=== PATIENT | female | born 1990 | race American Indian/Alaskan Native ===

== ENCOUNTER 2017-07-30 15:13 | Emergency (ER) | payer OTHER ==
[2017-07-30 15:13] VITALS: BMI 48.6
[2017-07-30] MEDS ORDERED: Naproxen 550 mg Tab PO STA (16:46)
--- NOTE | 2017-07-30 16:54 | C.PDOC ---
History Of Present Illness 07/30/2017 Amie Ang is a 27 y/o female who presents to the ED complaining of lower back pain for the past few weeks. Patient notes having a PEN TESTER shunt in lower back and believes it might be causing her pain. She reports working at [employer] and her work requires a lot of heavy lifting. The pain is non-radiating but becomes worse with movement and bending down. No other complaints were made. Time Seen by Provider: 07/30/17 15:52 Chief Complaint (Nursing): Back Pain History Per: Patient History/Exam Limitations: no limitations Onset/Duration Of Symptoms: Other (few weeks) Current Symptoms Are (Timing): Worse Previous Symptoms: Back Pain (lower back ) Associated Symptoms: None. denies: Incontinence, New Weakness, New Numbness Exacerbating Factor(s): Movement, Other (bending) Recent travel outside of the [place]: No Past Medical History Reviewed: Historical Data, Nursing Documentation, Vital Signs Vital Signs: Last Vital Signs Temp 98 F 07/30/17 17:52 Pulse 70 07/30/17 17:52 Resp 20 07/30/17 17:52 BP 111/72 07/30/17 17:52 Pulse Ox 96 07/30/17 17:59 - Medical History PMH: Anemia Denies: Chronic Kidney Disease - [facility] Procedures ESOPHAGOGASTRODUODENOSCOPY [EGD] W/CLOSED BIOPSY (07/23/15) MANUAL ASSIST DELIV NEC (10/03/13) Family History: States: Unknown Family Hx - Social History Hx Tobacco Use: No Hx Alcohol Use: No Hx Substance Use: No - Immunization History Hx Tetanus Toxoid Vaccination: No Hx Influenza Vaccination: No Hx Pneumococcal Vaccination: No Review Of Systems Constitutional: Negative for: Fever Cardiovascular: Negative for: Chest Pain Respiratory: Negative for: Shortness of Breath Genitourinary: Negative for: Dysuria Musculoskeletal: Positive for: Back Pain (lower back pain) Physical Exam - Physical Exam Appears: Well, Non-toxic, No Acute Distress Skin: Normal Color, Warm, Dry, Other (scar in lower back where PEN TESTER shunt is) Head: Atraumatic, Normacephalic Eye(s): bilateral: Normal Inspection, PERRL, EOMI Oral Mucosa: Moist Neck: Normal ROM, Supple Cardiovascular: Rhythm Regular, No Friction Rub, No Murmur Respiratory: Normal Breath Sounds, No Rales, No Rhonchi, No Wheezing Gastrointestinal/Abdominal: Normal Exam, Soft, No Tenderness Back: Normal Inspection, No CVA Tenderness, No Paraspinal Tenderness, Other Extremity: Normal ROM Neurological/Psych: Oriented x3, Normal Speech, Normal Motor, Normal Sensation Gait: Steady ED Course And Treatment O2 Sat by Pulse Oximetry: 96 (room air) Pulse Ox Interpretation: Normal Medical Decision Making Medical Decision Makin07/30/2017 Plan: -- Lumbar spine x-ray -- Anaprox and Flexeril -- Reassess and disposition Progress Notes: On re-exam, the patient reports the improvement of symptoms. Lungs are CTA, Lungs are CTA, Abdomen is soft, non-tender and patient is tolerating PO well. Patient is ambulatory in the ED with the steady gait. Follow up with the medical doctor within 1-2 days. Return if worsened. Disposition - Disposition Referrals: Waldemar Lee MD [Non-Staff] - Disposition: HOME/ ROUTINE Disposition Time: 17:55 Condition: GOOD Additional Instructions: Follow up with the medical doctor within 1-2 days. Return if worsened. Prescriptions: Cyclobenzaprine [Flexeril] 5 mg PO TID #21 tab Ibuprofen [Motrin Tab] 800 mg PO TID #20 tab Instructions: Back Pain (GEN), Back Exercises (ED) Forms: [facility] (Ukrainian), Work Excuse - Clinical Impression Clinical Impression: Low back strain - Scribe Statement The provider has reviewed the documentation as recorded by the Scribe 07/30/2017 Scribe Attestation: Makenna Webster MD Scribe Attestation: All medical record entries made by the Scribe were at my direction and personally dictated by me. I have reviewed the chart and agree that the record accurately reflects my personal performance of the history, physical exam, medical decision making, and the department course for this patient. I have also personally directed, reviewed, and agree with the discharge instructions and disposition.
[2017-07-30] MEDS ORDERED: Naproxen 550 mg Tab PO ONE (17:12)
[2017-07-30 17:54] VITALS: BP 111/72; PULSE 70; RESP 20; TEMP 98
--- NOTE | 2017-07-30 17:57 | RAD ---
PROCEDURE: Radiographs of the Lumbar Spine. HISTORY: Low back pain, has vp design shunt in lower back COMPARISON: No prior. FINDINGS: BONES: Normal alignment. No listhesis. No fracture. DISC SPACES: Unremarkable. OTHER FINDINGS: None. IMPRESSION: Unremarkable radiographs of the lumbar spine.
[2017-07-30 17:58] VITALS: O2SAT 96
== END 2017-07-30 18:07 | disposition home or self-care (01) ==
LOC: C.ER 15:13
DX: S39.012A Strain of muscle, fascia and tendon of lower back, initial encounter (principal); X50.0XXA Overexertion from strenuous movement or load, initial encounter; Y99.0 Civilian activity done for income or pay

== ENCOUNTER 2017-10-09 08:42 | Emergency (ER) | payer OTHER ==
[2017-10-09 08:43] VITALS: BMI 48.6
[2017-10-09 08:47] VITALS: BP 121/86; PULSE 77; RESP 17; TEMP 97.8; O2SAT 100
--- NOTE | 2017-10-09 09:19 | RAD ---
PROCEDURE: Left Hand Radiographs. HISTORY: PAIN/SWELLING COMPARISON: None. FINDINGS: BONES: Normal. No fracture. JOINTS: Normal. No osteoarthritic changes. SOFT TISSUES: Normal. OTHER FINDINGS: None. IMPRESSION: Normal left hand radiographs.
--- NOTE | 2017-10-09 09:27 | C.PDOC ---
History Of Present Illness 27 year female presents to the ED for evaluation of new onset left wrist pain which began last night. Patient denies trauma and states symptoms are worse with movement. Patient denies repetitive movement activities. Patient is right handed. Denies any other associated symptoms. NEW ONSET L WRIST PAIN SINCE LAST NIGHT. NO TRAUMA. WORSE W MOVEMENT. DENIES REPETITIVE MOVEMENT ACTIVITIES. R HANDED. NO OTHER ASSOC SX EXAM NAD EXT R WRIST/HAND NEG. L HAND/WRIST +REPRODUC PAIN W WRIST ROM LIMITED FULL FLEX/ EXT. MIN SWELL OVER DISTAL RADIAL ASPECT NO FOCAL TEND SKIN INTACT NO ERYTHEMA NO LESIONS NEURO INTACT Time Seen by Provider: 10/09/17 09:16 Chief Complaint (Nursing): Upper Extremity Problem/Injury History Per: Patient History/Exam Limitations: no limitations Onset/Duration Of Symptoms: Hrs, Other (new onset ) Current Symptoms Are (Timing): Still Present Quality: "Pain" Exacerbating Factor(s): Movement Additional History Per: Patient Past Medical History Reviewed: Historical Data, Nursing Documentation, Vital Signs Vital Signs: Last Vital Signs Temp 97.8 F 10/09/17 08:44 Pulse 77 10/09/17 08:44 Resp 17 10/09/17 08:44 BP 121/86 10/09/17 08:44 Pulse Ox 100 10/09/17 09:38 - Medical History PMH: Anemia Denies: Chronic Kidney Disease Surgical History: No Surg Hx - [facility] Procedures ESOPHAGOGASTRODUODENOSCOPY [EGD] W/CLOSED BIOPSY (07/23/15) MANUAL ASSIST DELIV NEC (10/03/13) Family History: States: Unknown Family Hx - Social History Hx Tobacco Use: No Hx Alcohol Use: Yes Hx Substance Use: No - Immunization History Hx Tetanus Toxoid Vaccination: No Hx Influenza Vaccination: No Hx Pneumococcal Vaccination: No Review Of Systems Musculoskeletal: Positive for: Other (left wrist pain ) Neurological: Negative for: Weakness, Numbness Physical Exam - Physical Exam Appears: Non-toxic, No Acute Distress Skin: Normal Color, Warm, Dry, No Other (erythema or lesions ) Extremity: Normal ROM (right wrist and hand ), No Tenderness (no focal tenderness), Capillary Refill (less than 2 seconds ), No Deformity, Swelling ( minimal, over disal radial aspect of left wrist), Other (reproducible pain with left wrist ROM; limited full flexion and extension ) Neurological/Psych: Oriented x3, Normal Speech, Normal Cognition, Normal Sensation Gait: Steady ED Course And Treatment O2 Sat by Pulse Oximetry: 100 (on RA) Pulse Ox Interpretation: Normal - Other Rad L HAND X-Ray: Interpreted by Me (NEG) Progress Note: Left hand XR ordered and reviewed. Lidoderm TD, Motrin PO, and Tylenol PO administered. Reevaluation Time: 09:37 Reassessment Condition: Improved (PT NOW STATES UNABLE TO TAKE NSAIDS DUE TO HO BYPASS) Disposition Counseled Patient/Family Regarding: Studies Performed, Diagnosis, Need For Followup, Rx Given - Disposition Referrals: Skinny Vines MD [Staff Provider] - [facility] [Outside] [facility] [Outside] Disposition: HOME/ ROUTINE Disposition Time: 09:26 Condition: IMPROVED Additional Instructions: REMOVE PATCH 12 HOURS AFTER INITIAL APPLICATION. Prescriptions: Acetaminophen [Tylenol Extra Strength] 2 tab PO Q6 #30 tablet Lidocaine 5% [Lidoderm] 1 ea TD PRN PRN #10 patch PRN Reason: Pain, Moderate (4-7) Instructions: Wrist Sprain (ED) Forms: [employer] (Hungarian), Work Excuse - Clinical Impression Clinical Impression: Wrist sprain - Scribe Statement The provider has reviewed the documentation as recorded by the Scribe (Brigitte Andrews) Provider Attestation: All medical record entries made by the Scribe were at my direction and personally dictated by me. I have reviewed the chart and agree that the record accurately reflects my personal performance of the history, physical exam, medical decision making, and the department course for this patient. I have also personally directed, reviewed, and agree with the discharge instructions and disposition. Orthopedic Care Application Of:: Volar Splint
[2017-10-09] MEDS ORDERED: Lidocaine 5% Patch TD STA (09:38)
[2017-10-09] MEDS ORDERED: Lidocaine 5% Patch TD ONE (09:41)
== END 2017-10-09 09:49 | disposition home or self-care (01) ==
LOC: C.ER 08:42
DX: S63.502A Unspecified sprain of left wrist, initial encounter (principal); X58.XXXA Exposure to other specified factors, initial encounter

== ENCOUNTER 2018-01-28 20:06 | Emergency (ER) | payer OTHER ==
[2018-01-28 20:06] VITALS: BMI 48.6
[2018-01-28 20:16] VITALS: RESP 18; TEMP 98.6; O2SAT 99
[2018-01-28] MEDS ORDERED: Sodium Chloride 0.9% 1,000 ML IV ONE (20:49)
--- NOTE | 2018-01-28 20:56 | C.PDOC ---
History Of Present Illness 27-year-old female s/p gastric bypass and cholecystectomy, presents to the ER complaining of 1 week of epigastric abdominal pain and nausea. No fever, chills , vomiting, diarrhea, or other complaints at this time. LMP was 01/04/18. Time Seen by Provider: 01/28/18 20:41 Chief Complaint (Nursing): Abdominal Pain History Per: Patient History/Exam Limitations: no limitations Onset/Duration Of Symptoms: Days (x 1 week) Current Symptoms Are (Timing): Still Present Location Of Pain/Discomfort: Epigastric Associated Symptoms: Nausea Past Medical History Reviewed: Historical Data, Nursing Documentation, Vital Signs Vital Signs: Last Vital Signs Temp 98.6 F 01/28/18 20:13 Pulse 81 01/28/18 20:13 Resp 18 01/28/18 20:13 BP 116/78 01/28/18 20:13 Pulse Ox 99 01/28/18 20:59 - Medical History PMH: Anemia Denies: Chronic Kidney Disease Surgical History: Cholecystectomy Other Surgeries: Gastric bypass - [facility] Procedures ESOPHAGOGASTRODUODENOSCOPY [EGD] W/CLOSED BIOPSY (07/23/15) MANUAL ASSIST DELIV NEC (10/03/13) Family History: States: Unknown Family Hx - Social History Hx Tobacco Use: No Hx Alcohol Use: Yes Hx Substance Use: No - Immunization History Hx Tetanus Toxoid Vaccination: No Hx Influenza Vaccination: No Hx Pneumococcal Vaccination: No Review Of Systems Except As Marked, All Systems Reviewed And Found Negative. Constitutional: Negative for: Fever, Chills Gastrointestinal: Positive for: Nausea, Abdominal Pain. Negative for: Vomiting , Diarrhea Physical Exam - Physical Exam Appears: Non-toxic, No Acute Distress Skin: Normal Color, Warm, Dry Head: Atraumatic, Normacephalic Eye(s): bilateral: Normal Inspection, PERRL, EOMI Nose: Normal Oral Mucosa: Moist Neck: Normal ROM, Supple Chest: Symmetrical Cardiovascular: Rhythm Regular, No Murmur Respiratory: Normal Breath Sounds, No Accessory Muscle Use Gastrointestinal/Abdominal: Soft, Tenderness (Mild epigastric tenderness), No Guarding, No Rebound Extremity: Bilateral: Atraumatic, Normal Color And Temperature, Normal ROM Neurological/Psych: Oriented x3, Normal Speech ED Course And Treatment - Laboratory Results Result Diagrams: 01/28/18 20:58 01/28/18 20:58 O2 Sat by Pulse Oximetry: 99 (RA) Pulse Ox Interpretation: Normal Medical Decision Making Medical Decision Making: suspect gastrits pud r/o pancreatitis h/o of cholecystetomy- labs pending Time: 20:49 Initial Plan: * Bilirubin * CMP * Lipase * CBC * PTT * Prothrombin time * Urinalysis * HCG, qualitative urine * IV fluids * Zofran 4 mg IVP * Protonix 40 mg IVP * Reevaluation 920: pt reassesed pain improving. pt is offered additional ct imaging, however she declines at this time, she states she will return to er with worsening symptoms or concerns. Disposition - Disposition Referrals: Demetrius Newby MD [Primary Care Provider] - Ayden Marlow MD [Staff Provider] - Disposition: HOME/ ROUTINE Disposition Time: 21:23 Condition: STABLE Additional Instructions: please follow up with your doctor/specialist. return to er with worsening symptoms or concerns. Prescriptions: Famotidine [Pepcid] 20 mg PO DAILY #20 tab Forms: [employer] (Japanese) - Clinical Impression Clinical Impression: Abdominal pain - Scribe Statement The provider has reviewed the documentation as recorded by the Scribe (Shanae Johnson) Provider Attestation: All medical record entries made by the Scribe were at my direction and personally dictated by me. I have reviewed the chart and agree that the record accurately reflects my personal performance of the history, physical exam, medical decision making, and the department course for this patient. I have also personally directed, reviewed, and agree with the discharge instructions and disposition.
[2018-01-28] MEDS ORDERED: Sodium Chloride 0.9% 1,000 ML ONE (21:01)
[2018-01-28 21:03] LABS: BASO # 0.1 K/uL (0.0-0.2); BASO % 0.8 % (0.0-2.0); EOS # 0.1 K/uL (0.0-0.7); HEMOGLOBIN 11.2 g/dL (11.0-16.0); LYMPH # 2.5 K/uL (1.0-4.3); LYMPH % 33.1 % (20.0-40.0); MEAN CELL VOLUME 70.9 fL (81.0-99.0); MEAN CORPUSCULAR HEMOGLOBIN 23.3 pg (27.0-31.0); MEAN CORPUSCULAR HGB CONC 32.9 g/dL (33.0-37.0); MEAN PLATELET VOLUME 10.2 fL (7.2-11.7); MONO # 0.5 K/uL (0.0-0.8); MONO % 6.4 % (0.0-10.0); NEUT # 4.4 K/uL (1.8-7.0); NEUT % 58.7 % (50.0-75.0); NRBC % 0.1 % (0.0-2.0); RBC 4.79 Mil/uL (3.80-5.20); RED CELL DISTRIBUTION WIDTH 15.7 % (11.5-14.5); WHITE BLOOD COUNT 7.4 K/uL (4.8-10.8)
[2018-01-28 21:10] LABS: HCG,QUALITATIVE URINE NEGATIVE (NEGATIVE)
[2018-01-28 21:12] LABS: INR 1.1; PROTHROMBIN TIME 12.6 SECONDS (9.7-12.2); SQUAMOUS EPITHIAL < 1 /hpf (0-5); URINE BACTERIA RARE (<OCC); URINE BILIRUBIN NEGATIVE (NEGATIVE); URINE BLOOD NEGATIVE (NEGATIVE); URINE CLARITY Clear (Clear); URINE COLOR Yellow (YELLOW); URINE GLUCOSE (UA) NORMAL (Normal); URINE LEUKOCYTE ESTERASE NEG Leu/uL (Negative); URINE PROTEIN NEGATIVE (NEGATIVE)
[2018-01-28 21:18] LABS: ALBUMIN 4.2 g/dL (3.5-5.0); ALT/SGPT 25 U/L (9-52); AST/SGOT 35 U/L (14-36); BILIRUBIN,DIRECT 0.4 mg/dL (0.0-0.4); BLOOD UREA NITROGEN 12 mg/dL (7-17); CALCIUM 8.6 mg/dl (8.6-10.4); GFR AFRICAN-AMERICAN > 60; GFR NON-AFRICAN AMERICAN > 60; LIPASE 166 U/L (23-300)
[2018-01-28 21:37] VITALS: BP 113/67; PULSE 79
== END 2018-01-28 21:47 | disposition home or self-care (01) ==
LOC: C.ER 20:06 → SUPCPDRO 20:06 → C.ER 21:47
DX: R10.13 Epigastric pain (principal)
CPT/HCPCS: 80053; 81001; 82248; 83690; 84703; 85025; 85610; 85730; 96361; 96374; 96375; 99283; C9113; J2405; J7040

== ENCOUNTER 2018-08-05 18:57 | Emergency (ER) | payer OTHER ==
[2018-08-05 18:57] VITALS: BMI 48.6
[2018-08-05] MEDS ORDERED: Sodium Chloride 0.9% 1,000 ML IV ONE (19:18)
--- NOTE | 2018-08-05 19:18 | C.PDOC ---
History Of Present Illness 28 year old female presents to the ED c/o right flank pain for the couple weeks. Patient states she had abdominal discomfort since she had abdominal plasty done in the [place]. Patient is tolerating PO. Patient denies fever, chilss, dysuria, hematuria, vomiting, diarrhea. Time Seen by Provider: 08/05/18 19:17 Chief Complaint (Nursing): Abdominal Pain History Per: Patient History/Exam Limitations: no limitations Onset/Duration Of Symptoms: Days Current Symptoms Are (Timing): Still Present Context: Other Severity: Moderate Pain Scale Rating Of: 4 Location Of Pain/Discomfort: RUQ, RLQ Radiation Of Pain To:: Flank Quality Of Discomfort: "Pain" Associated Symptoms: denies: Nausea, Vomiting, Diarrhea, Loss Of Appetite, Urinary Symptoms Exacerbating Factors: None Alleviating Factors: None Last Bowel Movement: Today Recent travel outside of the [place]: No Additional History Per: Patient Abnormal Vaginal Bleeding: No Past Medical History Reviewed: Historical Data, Nursing Documentation, Vital Signs Vital Signs: Last Vital Signs Temp 98.1 F 08/05/18 22:13 Pulse 92 H 08/05/18 22:13 Resp 14 08/05/18 22:13 BP 106/69 08/05/18 22:13 Pulse Ox 100 08/05/18 22:13 - Medical History PMH: Anemia Denies: Chronic Kidney Disease Surgical History: Cholecystectomy - [facility] Procedures ESOPHAGOGASTRODUODENOSCOPY [EGD] W/CLOSED BIOPSY (07/23/15) MANUAL ASSIST DELIV NEC (10/03/13) Family History: States: Unknown Family Hx - Social History Hx Tobacco Use: No Hx Alcohol Use: Yes Hx Substance Use: No - Immunization History Hx Tetanus Toxoid Vaccination: No Hx Influenza Vaccination: No Hx Pneumococcal Vaccination: No Review Of Systems Constitutional: Negative for: Fever, Chills Cardiovascular: Negative for: Chest Pain Respiratory: Negative for: Shortness of Breath Gastrointestinal: Positive for: Abdominal Pain. Negative for: Nausea, Vomiting , Diarrhea Genitourinary: Negative for: Dysuria, Hematuria, Vaginal Discharge, Vaginal Bleeding Musculoskeletal: Positive for: Back Pain Skin: Negative for: Rash Physical Exam - Physical Exam Appears: Non-toxic, No Acute Distress Skin: Warm, Dry Head: Normacephalic Eye(s): bilateral: Normal Inspection Neck: Supple Chest: Symmetrical Cardiovascular: Rhythm Regular Respiratory: No Rales, No Rhonchi, No Wheezing Gastrointestinal/Abdominal: Soft, Tenderness (mild RLQ, right flank), No Guarding, No Rebound Back: CVA Tenderness (mild right ) Extremity: No Tenderness, No Swelling Extremity: Bilateral: Atraumatic, Normal Color And Temperature, Normal ROM Neurological/Psych: Oriented x3, Normal Speech Gait: Steady ED Course And Treatment - Laboratory Results Result Diagrams: 08/05/18 19:39 08/05/18 19:39 O2 Sat by Pulse Oximetry: 100 (ON RA) Pulse Ox Interpretation: Normal Progress Note: Plan: - Labs. - IV fluids. - Zofran 4 mg IVP. - UA Reevaluation Time: 22:50 Reassessment Condition: Improved Disposition Counseled Patient/Family Regarding: Studies Performed, Diagnosis, Need For Followup, Rx Given - Disposition Referrals: Demetrius Newby MD [Staff Provider] - Disposition: HOME/ ROUTINE Disposition Time: 19:18 Condition: FAIR Additional Instructions: Please return if symptoms recur Prescriptions: Metronidazole [Flagyl] 500 mg PO TID #21 tablet Instructions: Acute Abdomen (Belly Pain), Adult (DC) Forms: [employer] (Albanian) - Clinical Impression Clinical Impression: Abdominal pain, Enteritis - Scribe Statement The provider has reviewed the documentation as recorded by the Scribe Martin Chris All medical record entries made by the Scribe were at my direction and personally dictated by me. I have reviewed the chart and agree that the record accurately reflects my personal performance of the history, physical exam, medical decision making, and the department course for this patient. I have also personally directed, reviewed, and agree with the discharge instructions and disposition.
[2018-08-05] MEDS ORDERED: Sodium Chloride 0.9% 1,000 ML ONE (19:43)
[2018-08-05 19:45] LABS: EOS # 0.1 K/uL (0.0-0.7); EOS % 1.5 % (0.0-4.0); LYMPH # 1.7 K/uL (1.0-4.3); LYMPH % 35.4 % (20.0-40.0); MEAN CELL VOLUME 71.6 fL (81.0-99.0); MEAN CORPUSCULAR HEMOGLOBIN 22.8 pg (27.0-31.0); MEAN CORPUSCULAR HGB CONC 31.8 g/dL (33.0-37.0); MEAN PLATELET VOLUME 9.6 fL (7.2-11.7); MONO # 0.4 K/uL (0.0-0.8); MONO % 7.9 % (0.0-10.0); NEUT # 2.7 K/uL (1.8-7.0); NEUT % 54.2 % (50.0-75.0); NRBC % 0.1 % (0.0-2.0); RBC 4.81 Mil/uL (3.80-5.20); RED CELL DISTRIBUTION WIDTH 17.6 % (11.5-14.5); WHITE BLOOD COUNT 4.9 K/uL (4.8-10.8)
[2018-08-05 19:51] LABS: INR 1.2
[2018-08-05 20:00] LABS: BLOOD UREA NITROGEN 10 mg/dL (7-17); CALCIUM 8.9 mg/dl (8.6-10.4); GFR NON-AFRICAN AMERICAN > 60; LIPASE 150 U/L (23-300)
[2018-08-05 20:01] LABS: SQUAMOUS EPITHIAL 1 /hpf (0-5); URINE BACTERIA RARE (<OCC); URINE BILIRUBIN NEGATIVE (NEGATIVE); URINE BLOOD 2+ (NEGATIVE); URINE CLARITY Clear (Clear); URINE COLOR Yellow (YELLOW); URINE GLUCOSE (UA) NORMAL (Normal); URINE LEUKOCYTE ESTERASE NEG Leu/uL (Negative); URINE PROTEIN NEGATIVE (NEGATIVE)
[2018-08-05 20:03] LABS: ALBUMIN 4.2 g/dL (3.5-5.0); ALT/SGPT 19 U/L (9-52); AST/SGOT 43 U/L (14-36)
[2018-08-05 20:04] LABS: HCG,QUALITATIVE URINE NEGATIVE (NEGATIVE)
[2018-08-05] MEDS ORDERED: Iodixanol 320 MG/ML 100 ML BOTTLE IV ONE (20:38)
[2018-08-05] MEDS ORDERED: DiphenhydrAMINE 50 mg/ml Inj IVP STA (21:06)
[2018-08-05] MEDS ORDERED: DiphenhydrAMINE 50 mg/ml Inj ONE (21:24)
[2018-08-05 22:14] VITALS: BP 106/69; PULSE 92; RESP 14; TEMP 98.1; O2SAT 100
--- NOTE | 2018-08-06 08:58 | CT ---
Date of service: 08/05/2018 PROCEDURE: CT Abdomen and Pelvis with intravenous contrast HISTORY: Right lower quadrant abdominal pain. COMPARISON: 12/22/2017 TECHNIQUE: Multiple contiguous axial images were performed through the abdomen and pelvis with the use of intravenous contrast. Subsequently, sagittal and coronal reformatted images were obtained. Radiation dose: Total exam DLP = 587 mGy-cm. This CT exam was performed using one or more of the following dose reduction techniques: Automated exposure control, adjustment of the mA and/or kV according to patient size, and/or use of iterative reconstruction technique. FINDINGS: LOWER THORAX: Unremarkable. LIVER: Unremarkable. No gross lesion or ductal dilatation. GALLBLADDER AND BILE DUCTS: Prior cholecystectomy. PANCREAS: Unremarkable. No gross lesion or ductal dilatation. SPLEEN: Unremarkable. ADRENALS: Unremarkable. No mass. KIDNEYS AND URETERS: Unremarkable. No hydronephrosis. No solid mass. VASCULATURE: Unremarkable. No aortic aneurysm. BOWEL: Gastric stapling and bypass. The distal small bowel and terminal ileum are thick walled raising suspicion for an infectious/inflammatory process. Inflammatory bowel disease is not excluded. Few scattered areas of thickening and/or underdistention of the proximal transverse colon and sigmoid colon. APPENDIX: Unremarkable. Normal appendix. PERITONEUM: Unremarkable. No free fluid. No free air. LYMPH NODES: Mildly prominent bilateral inguinal lymph nodes. BLADDER: Unremarkable. REPRODUCTIVE: 2.7 centimeter right ovarian cyst. BONES: No acute fracture. OTHER FINDINGS: None. IMPRESSION: No evidence of acute appendicitis. Thick walled distal small bowel and terminal ileum. Few scattered areas of thickening and/or underdistention of the proximal transverse colon and sigmoid colon. Possible infectious/ inflammatory process. Inflammatory bowel is not excluded. Clinical correlation. 2.7 centimeter right ovarian cyst. Additional findings as above. These findings were preliminarily reported at 10:46 p.m. on 08/05/[address] Maura Scales from [employer].
== END 2018-08-05 23:12 | disposition home or self-care (01) ==
LOC: C.ER 18:57
DX: K52.9 Noninfective gastroenteritis and colitis, unspecified (principal); R10.31 Right lower quadrant pain
CPT/HCPCS: 74177; 80053; 81001; 83690; 84703; 85025; 85610; 85730; 96361; 96374; 96375; 99285; J1200; J1885; J2405; J2930; J7030; Q9967

== ENCOUNTER 2018-09-29 17:55 | Emergency (ER) | payer OTHER ==
[2018-09-29 17:55] VITALS: BMI 48.6
--- NOTE | 2018-09-29 19:21 | C.PDOC ---
History Of Present Illness 28 year old female presents to the ED c/o suprapubic abdominal pain that started yesterday, patient states her pain is localized and intermittent. Patient reports her pain is mostly at her tummytuck surgical site. Patient states she has normal bowel movements. Patient denies fever, chills, nausea, vomit, dysuria, hematuria, back pain, history of FOAM CHARGER shunt. SUPRAPUB PAIN SINCE YEST. LOCALIZED INTERMIT. PAIN @ TUMMYTUCK SURG SITE. NO NV, FEVER. +NORMAL BM. NO UTI SX. HO FOAM CHARGER SHUNT EXAM NAD NONTOXIC ABD +SUPRAPUB TEND MILD SOFT NO R/G REMAINDER NEG Time Seen by Provider: 09/29/18 19:07 Chief Complaint (Nursing): Abdominal Pain History Per: Patient History/Exam Limitations: no limitations Onset/Duration Of Symptoms: Days (1), Intermittent Episodes Current Symptoms Are (Timing): Still Present Location Of Pain/Discomfort: Suprapubic Radiation Of Pain To:: None Quality Of Discomfort: "Pain" Associated Symptoms: denies: Nausea, Vomiting, Diarrhea, Constipation, Urinary Symptoms Alleviating Factors: None Recent travel outside of the [place]: No Additional History Per: Patient Abnormal Vaginal Bleeding: No Past Medical History Reviewed: Historical Data, Nursing Documentation, Vital Signs Vital Signs: Last Vital Signs Temp 98.6 F 09/29/18 18:07 Pulse 98 H 09/29/18 18:07 Resp 16 09/29/18 18:07 BP 115/75 09/29/18 18:07 Pulse Ox 100 09/29/18 18:07 - Medical History PMH: Anemia Denies: Chronic Kidney Disease Surgical History: Cholecystectomy Other Surgeries: [place] - [facility] Procedures ESOPHAGOGASTRODUODENOSCOPY [EGD] W/CLOSED BIOPSY (07/23/15) MANUAL ASSIST DELIV NEC (10/03/13) Family History: States: Unknown Family Hx - Social History Hx Tobacco Use: No Hx Alcohol Use: Yes Hx Substance Use: No - Immunization History Hx Tetanus Toxoid Vaccination: No Hx Influenza Vaccination: No Hx Pneumococcal Vaccination: No Review Of Systems Constitutional: Negative for: Fever, Chills Cardiovascular: Negative for: Chest Pain Respiratory: Negative for: Cough, Shortness of Breath Gastrointestinal: Positive for: Abdominal Pain. Negative for: Nausea, Vomiting, Diarrhea Genitourinary: Negative for: Dysuria, Hematuria, Vaginal Discharge, Vaginal Bleeding Musculoskeletal: Negative for: Back Pain Skin: Negative for: Rash Physical Exam - Physical Exam Appears: Non-toxic, No Acute Distress Skin: Normal Color, Warm, Dry Head: Atraumatic, Normacephalic Eye(s): bilateral: Normal Inspection Oral Mucosa: Moist Neck: Normal ROM, Supple Chest: Symmetrical Cardiovascular: Rhythm Regular Respiratory: Normal Breath Sounds, No Rales, No Rhonchi, No Wheezing Gastrointestinal/Abdominal: Soft, Tenderness (mild suprapubic), No Guarding, No Rebound Back: No CVA Tenderness Extremity: Bilateral: Atraumatic, Normal Color And Temperature, Normal ROM Neurological/Psych: Oriented x3, Normal Speech, Normal Cognition Gait: Steady ED Course And Treatment - Laboratory Results Result Diagrams: 09/29/18 20:16 09/29/18 20:16 O2 Sat by Pulse Oximetry: 100 (ON RA) Pulse Ox Interpretation: Normal - CT Scan/US Pelvic US Other Rad Studies (CT/US): Read By Radiologist, Radiology Report Reviewed CT/US Interpretation: Clinical history: Pain. Findings: Real-time transabdominal and transvaginal ultrasound images of the pelvis were obtained. The cervix measures 3.9 cm in length, and is closed. An anteverted uterus is noted, measuring 12.2 x 7.8 x 8.4 cm. The uterus demonstrates normal echotexture and echogenicity. There is a single live intrauterine . The crown rump length measures 1.22 cm. The heart rate measures 154 bpm. There is no evidence of a subchorionic hemorrhage. The right ovary was not visualized. The left ovary measures 4.5 x 3.0 x 3.2 cm. There is a small left ovarian corpus luteum cyst. No adnexal masses are seen. Color Doppler flow is seen within the left ovary. There is no evidence of free fluid. Impression: Single live intrauterine measuring 7 weeks 3 days with heart rate of 154 bpm. . Electronically signed on Sep 29, 2018 10:54:35 PM EST by: Venancio Samuel M.D., RIKKI Certified By ABR & CBCCT. Fellowship Trained MRI and CT Specialist Progress - Re-Evaluation Re-evaluation Note: 09/29/18 21:05 MORPHINE GIVEN PRIOR TO PREG STATUS RESULT. PER RN ELEANOR, MEDS GIVEN WITHOUT ORDER ACKNOWLEDGED. . PS HO IRREG MENSES, LMP 2 MO 09/29/18 23:03 APPEARS COMFORTABLE NONTOXIC NO S/S ACUTE ABD. ADVISED FU OBGYN - Data Reviewed Data Reviewed: Lab, Diagnostic imaging, Old records Medical Decision Making Medical Decision Making: Plan: * Pelvic US * Labs * Morphine 2 mg IVP * Urine culture * UA Disposition Counseled Patient/Family Regarding: Studies Performed, Diagnosis, Need For Followup - Disposition Referrals: YOUR,OB[facility]N [Other] [facility] [Outside] [facility] [Outside] Disposition: HOME/ ROUTINE Disposition Time: 23:04 Condition: GOOD Instructions: Threatened Miscarriage (DC) Forms: [employer] (Latvian) - Clinical Impression Clinical Impression: Threatened miscarriage - Scribe Statement The provider has reviewed the documentation as recorded by the Scribe Martin Chris All medical record entries made by the Scribe were at my direction and personally dictated by me. I have reviewed the chart and agree that the record accurately reflects my personal performance of the history, physical exam, medical decision making, and the department course for this patient. I have also personally directed, reviewed, and agree with the discharge instructions and disposition.
[2018-09-29] MEDS ORDERED: Iohexol 350mg/ml 100 ML ONE (19:40)
[2018-09-29 20:19] LABS: BASO # 0.1 K/uL (0.0-0.2); BASO % 0.9 % (0.0-2.0); EOS # 0.2 K/uL (0.0-0.7); EOS % 2.4 % (0.0-4.0); HEMOGLOBIN 11.4 g/dL (11.0-16.0); LYMPH # 1.9 K/uL (1.0-4.3); LYMPH % 29.5 % (20.0-40.0); MEAN CELL VOLUME 71.1 fL (81.0-99.0); MEAN CORPUSCULAR HGB CONC 32.4 g/dL (33.0-37.0); MEAN PLATELET VOLUME 9.1 fL (7.2-11.7); MONO # 0.6 K/uL (0.0-0.8); MONO % 8.6 % (0.0-10.0); NEUT # 3.8 K/uL (1.8-7.0); NEUT % 58.6 % (50.0-75.0); NRBC % 0.2 % (0.0-2.0); RBC 4.95 Mil/uL (3.80-5.20); RED CELL DISTRIBUTION WIDTH 15.9 % (11.5-14.5); WHITE BLOOD COUNT 6.4 K/uL (4.8-10.8)
[2018-09-29 20:23] LABS: SQUAMOUS EPITHIAL 2 /hpf (0-5); URINE BILIRUBIN NEGATIVE (NEGATIVE); URINE BLOOD NEGATIVE (NEGATIVE); URINE CLARITY Clear (Clear); URINE COLOR Yellow (YELLOW); URINE GLUCOSE (UA) NORMAL (Normal); URINE LEUKOCYTE ESTERASE NEG Leu/uL (Negative); URINE PROTEIN NEGATIVE (NEGATIVE)
[2018-09-29 20:32] LABS: BLOOD UREA NITROGEN 11 mg/dL (7-17); CALCIUM 8.5 mg/dl (8.6-10.4); GFR NON-AFRICAN AMERICAN > 60; LIPASE 131 U/L (23-300)
[2018-09-29 20:34] LABS: ALT/SGPT 20 U/L (9-52); AST/SGOT 34 U/L (14-36)
[2018-09-29 22:56] VITALS: O2SAT 100
[2018-09-29 23:19] VITALS: BP 108/74; PULSE 83; RESP 20; TEMP 98
--- NOTE | 2018-09-30 18:08 | US ---
Date of service: 09/29/2018 PROCEDURE: OB Pelvic Ultrasound HISTORY: LOWER PAIN R/O ECTOPIC LMP: Not available COMPARISON: None available. FINDINGS: UTERUS: Single living intrauterine gestation Gestational sac: MS D = 2.79 cm = 7 weeks 4 days. Yolk sac: 3.7 mm pole: CRL = 1.22 cm = 7 weeks 3 days Heart rate: 154 bpm. age (Ultrasound estimated): 7 weeks 4 days +/-0 weeks 4 days Brittany-gestational hemorrhage: None. Date of delivery (Ultrasound estimated) : 05/14/2020 Uterus measures 12.2 x 7.8 x 8.5 cm. Normal in size and appearance. CERVIX: Measures 3.9 cm. Long and closed. No cervical abnormality seen. RIGHT OVARY: Not visualized LEFT OVARY: Measures 4.5 x 3.0 x 3.2 cm. No solid mass. Normal flow. Corpus luteum cyst of measuring 2.0 x 1.8 x 2.5 cm. FREE FLUID: None. OTHER FINDINGS: None. IMPRESSION: Single living intrauterine gestation at approximately 7 weeks 4 days +/-0 weeks 4 days. Heart rate document at 154 BPM left-sided corpus luteum cyst of as above
== END 2018-09-29 23:19 | disposition home or self-care (01) ==
LOC: C.ER 17:55
DX: O20.0 Threatened abortion (principal); Z3A.01 Less than 8 weeks gestation of pregnancy
CPT/HCPCS: 76801; 80053; 81001; 83690; 84702; 84703; 85025; 87086; 96374; 99285; J2270